=== PATIENT | female | born 1985 | race Caucasian/White ===

== ENCOUNTER → 2019-03-20 | Outpatient (CLI) | payer OTHER ==
--- NOTE | 2019-03-20 17:59 | RAD ---
Examination: ANKLE RIGHT 2V History: Right ankle pain and swelling Comparison/Correlation: None Findings: 3V right ankle x-ray exam was performed. Endotracheal mortise is unremarkable. Mild soft tissue swelling over the lateral malleolus is present. No fracture or bone destruction. Sclerotic density involving the distal tibial diametaphyseal region which represent a bone infarct or other benign process is present. Bony cortex is grossly unremarkable. Impression: Mild soft tissue swelling about the lateral malleolus. Distal tibial metaphyseal bone infarct or other benign appearing sclerotic process. Electronically signed by: Sd Lucio MD (03/20/2019 5:56 PM) [facility]
== END | disposition home or self-care (01) ==
LOC: DXRAD 11:08
PROVIDERS: ATTEND Physician Assistant
DX: M25.471 Effusion, right ankle (principal); M25.571 Pain in right ankle and joints of right foot
CPT/HCPCS: 73600

== ENCOUNTER 2019-07-07 22:57 | Observation (INO) | payer OTHER ==
[~2019-07-07] VITALS: Ht 162.6 cm; Wt 83.9 kg
--- NOTE | 2019-07-07 23:00 | PHYS DOC ---
Past History Past Medical History: Other Past Medical History History of elevated LFTs Smoking: Cigarettes General Adult HPI: HPI: ".. I feel like ... I got the flu... I didn't get my flu shot... and now I hurt all over... feverish... chills, now a headache... I feel like some one beat from top my head down... I just took my last Bactrim... .. I was on it 10 days... for the abscess in my Rt arm pit...Danilo Sawyer sent me in.. said I should have any pneumonia... It feels like the flu....".. I have had a little cough.. nothing comes up.. " Patient is a 33 year old female who presents with above hx and complaints fever, malaise, myalgia, arthralgia, cephalgia and nausea. Patient has just completed 10-day course of Bactrim DS twice a day for treatment of right axillary abscess. Patient states she has been trying stay at home during this COVID pandemic. Pt. 2 children ages 4 and 7 are well. No other family members have symptoms. Patient did not get flu vaccination this season. Patient does smoke. Patient denies any history immunosuppression. Has had elevated LFTs that Dr. Payton and he has been following up. Has a pending liver ultrasound. The patient denies any recent travel outside the [place] area. The pt. follows with Dr. Montgomery Review of Systems: Review of Systems: -Constitutional: Complains of fever or chills Eyes: Denies change in visual acuity HENT: Denies nasal congestion or sore throat Respiratory: History of nonproductive cough Cardiovascular: Denies chest pain or edema GI: Denies abdominal pain, , vomiting, bloody stools or diarrhea . Complains of nausea. Patient complains of recent series of irregular periods and elevated liver enzymes that is being worked up by Dr. Boland : Denies dysuria Musculoskeletal: Denies back pain or joint pain Integument: Denies rash. Complains of recent axillary abscess on the right Neurologic: Complains of headache,. Denies focal weakness or sensory changes Endocrine: Denies polyuria or polydipsia Lymphatic: Denies swollen glands Psychiatric: Denies depression or anxiety Heart Score: HEART Score for Chest Pain: HEART Score for Chest Pain Response (Comments) Value History Slighlty/Non-Suspicious 0 ECG Normal 0 Age < 45 0 Risk Factors 1 or 2 Risk Factors 1 Troponin >1-<3x Normal Limit 1 Total 2 Risk Factors: Risk Factors: DM, Current or recent (<one month) smoker, HTN, HLP, family h istory of CAD, obesity. Risk Scores: Score 0 - 3: 2.5% MACE over next 6 weeks - Discharge Home Score 4 - 6: 20.3% MACE over next 6 weeks - Admit for Clinical Observation Score 7 - 10: 72.7% MACE over next 6 weeks - Early Invasive Strategies Family History: Family History: Noncontributory to presentation Current Medications: Current Meds: See nursing for home meds Allergies: Allergies: No known drug allergies Physical Exam: PE: Constitutional: Moderate acute distress, non-toxic appearance. [] HENT: Normocephalic, atraumatic, bilateral external ears normal, oropharynx moist, mild injection of pharynx, no oral exudates, nose swollen turbinate and clear rhinorrhea.. Patient scalp is tenderness to palpation. Eyes: PERRLA, EOMI, conjunctiva normal, no discharge. [] Neck: Normal range of motion, adenopathy, mild tenderness, supple, no stridor. [] Cardiovascular:Heart rate regular rhythm, no murmur [] Lungs & Thorax: Bilateral breath sounds equal at apex with scattered wheezes on auscultation [] Abdomen: Bowel sounds normal, soft, no tenderness, no masses, no pulsatile masses. [] Skin: Warm, dry, no erythema, no rash. [] Back: No tenderness, no CVA tenderness. [] Extremities: No tenderness, no cyanosis, no clubbing, ROM intact, no edema. No appreciable cording in the legs. Right axillary abscess well-healed. Neurologic: Alert and oriented X 3, normal motor function, normal sensory function, no focal deficits noted. [] DTRs +2 patellar and brachial. Digital Photographer equal. No drift. Patient is ambulatory. Psychologic: Affect anxious, judgement normal, mood normal. [] EKG: EKG: My interpretation EKG shows a sinus rhythm at 75 bpm. No acute morphology [] Radiology/Procedures: Radiology/Procedures: [][address] [address] IMAGING REPORT Signed PATIENT: MARSHAL PURDY ACCOUNT: [id number] : 1985 LOCATION: ER AGE: 33 SEX: F EXAM STATUS: REG ER ORD. PHYSICIAN: ROSE OCHOA MD REASON: headache and neck pain PROCEDURE: CT HEAD AND CERVICAL SPINE WO CT head without contrast. CT cervical spine without contrast. PQRS statement: CT scans at this facility use dose reduction including either automated exposure control, iterative reconstructions, and /or weight based radiation dosing via mA and kV modification when appropriate to reduce radiation dose to as low as reasonably achievable. HISTORY: Headache. Neck pain. CT head findings: No intracranial hemorrhage, mass, hydrocephalus or infarction. No acute ischemic change. Orbits, mastoids and bones are unremarkable. IMPRESSION: Normal exam. CT cervical spine findings: Craniocervical junction intact. Cervical vertebral body height and alignment intact. No fracture of the cervical spine. Paraspinal tissues and lung apices are unremarkable. Upper cervical jugular chain and posterior cervical triangle adenopathy largest lymph node at the left jugular chain measures 1.5 cm with a round morphology on image 45. IMPRESSION: 1. No acute osseous injury of the cervical spine. 2. Cervical adenopathy. Electronically signed by: Zakia Morris MD (07/08/2019 5:47 AM) [id number] DICTATED AND SIGNED BY: ZAKIA MORRIS MD DATE: 07/08/19 0547 CC: ROSE OCHOA MD; LARISSA ARREAGA MD ~ IMAGING REPORT Signed PATIENT: MARSHAL PURDY ACCOUNT: [id number] : 1985 LOCATION: ER AGE: 33 SEX: F EXAM STATUS: REG ER ORD. PHYSICIAN: ROSE OCHOA MD REASON: cough, fever PROCEDURE: CHEST PA & LATERAL PA and lateral chest x-ray HISTORY: Cough and fever. FINDINGS: Heart size normal. Mediastinal silhouette is normal. No pneumothorax, pulmonary opacities or pleural effusions. Bones are unremarkable. IMPRESSION: No acute process. No acute process. Electronically signed by: Zakia Morris MD (07/08/2019 5:49 AM) [id number] DICTATED AND SIGNED BY: ZAKIA MORRIS MD DATE: 07/08/19 0549 CC: ROSE OCHOA MD; LARISSA ARREAGA MD ~ Course & Med Decision Making: Course & Med Decision Making Pertinent Labs and Imaging studies reviewed. (See chart for details) Discussed presentation testing and treatment plan with , will admit with cardiology consult. Impression: 1. Viral syndrome 2. Anemia Hgb 10.2 normocytic indices 54/16 3. Elevated troponin 0.170 4. Elevated d-dimer 3.75 5. Elevated LFTs-AST 45, ALT 93, alk phos 169 6. Cervical adenopathy [] Dragon Disclaimer: Dragon Disclaimer: This electronic medical record was generated, in whole or in part, using a voice recognition dictation system. Departure Departure: Disposition: 01 HOME/RESIDENCE PRIOR TO ADM Condition: STABLE Referrals: LARISSA ARREAGA MD (PCP) Dragon Disclaimer This chart was dictated in whole or in part using Voice Recognition software in a busy, high-work load, and often noisy Emergency Department environment. It may contain unintended and wholly unrecognized errors or omissions. Dragon Disclaimer This chart was dictated in whole or in part using Voice Recognition software in a busy, high-work load, and often noisy Emergency Department environment. It may contain unintended and wholly unrecognized errors or omissions. ROSE OCHOA MD Jul 07, 2019 23:00
--- NOTE | 2019-07-08 01:10 | EKG ---
[address] [address] Test Date: 2019-07-08 Test Time: 00:47:40 Pat Name: MARSHAL PURDY Department: Room: Gender: F Event Management Consultant: : 1985 Requested By: ROSE OCHOA Order Number: [id number] Reading MD: Clinton Wang Measurements Intervals [place] Rate: 75 P: 17 MT: 148 QRS: 11 QRSD: 78 T: 6 QT: 370 QTc: 416 Interpretive Statements SINUS RHYTHM NORMAL ECG RI6.02 No previous ECG available for comparison Electronically Signed On 07-09-2019 20:05:16 CDT by Clinton Wang
[2019-07-08] MEDS ORDERED: IV RINGERS SOLUTION,LACTATED 1,000 ML IV SCH (02:15)
[2019-07-08] MEDS ORDERED: KETOROLAC 30 MG/ML VIAL. IVP ONE (02:15)
[2019-07-08] MEDS ORDERED: ONDANSETRON PF 4 MG/2 ML VIAL. IVP ONE (02:15)
[2019-07-08 04:39] LABS: ALBUMIN 3.7 g/dL (3.4-5.0); CALCIUM 8.3 mg/dL (8.5-10.1); GFR 64.3; TOTAL BILIRUBIN 0.2 mg/dL (0.2-1.0); TOTAL PROTEIN 7.2 g/dL (6.4-8.2)
[2019-07-08 04:40] LABS: POTASSIUM 3.7 mmol/L (3.5-5.1)
[2019-07-08] MEDS ORDERED: ASPIRIN 325 MG TABLET PO ONE (05:30)
--- NOTE | 2019-07-08 05:50 | RAD ---
CT head without contrast. CT cervical spine without contrast. PQRS statement: CT scans at this facility use dose reduction including either automated exposure control, iterative reconstructions, and /or weight based radiation dosing via mA and kV modification when appropriate to reduce radiation dose to as low as reasonably achievable. HISTORY: Headache. Neck pain. CT head findings: No intracranial hemorrhage, mass, hydrocephalus or infarction. No acute ischemic change. Orbits, mastoids and bones are unremarkable. IMPRESSION: Normal exam. CT cervical spine findings: Craniocervical junction intact. Cervical vertebral body height and alignment intact. No fracture of the cervical spine. Paraspinal tissues and lung apices are unremarkable. Upper cervical jugular chain and posterior cervical triangle adenopathy largest lymph node at the left jugular chain measures 1.5 cm with a round morphology on image 45. IMPRESSION: 1. No acute osseous injury of the cervical spine. 2. Cervical adenopathy. Electronically signed by: Remington Morris MD (07/08/2019 5:47 AM) [id number]
--- NOTE | 2019-07-08 05:52 | RAD ---
PA and lateral chest x-ray HISTORY: Cough and fever. FINDINGS: Heart size normal. Mediastinal silhouette is normal. No pneumothorax, pulmonary opacities or pleural effusions. Bones are unremarkable. IMPRESSION: No acute process. No acute process. Electronically signed by: Remington Morris MD (07/08/2019 5:49 AM) [id number]
[2019-07-08 06:08] LABS: BARBITURATES NEG (NEG); BENZODIAZEPINES NEG (NEG); CANNABINOIDS NEG (NEG); COCAINE NEG (NEG); METHADONE NEG (NEG); OPIATES NEG (NEG); PHENCYCLIDINE NEG (NEG)
[2019-07-08 06:12] LABS: INFLUENZA A PATIENT NEGATIVE (NEGATIVE); INFLUENZA B PATIENT NEGATIVE (NEGATIVE)
[2019-07-08 06:23] LABS: AMPHETAMINE/METHAMPHETAMINE NEG (NEG)
[2019-07-08] MEDS ORDERED: ONDANSETRON PF 4 MG/2 ML VIAL. IVP PRN ×2 (06:45→15:30)
[2019-07-08] MEDS ORDERED: ANTI-COAG MONITOR BY PHARMACY. MC PRN (07:00)
[2019-07-08 07:15] LABS: CLARITY,URINE CLEAR; COLOR,URINE YELLOW
[2019-07-08 07:16] LABS: BACTERIA,URINE 0 /HPF (0-FEW); BILIRUBIN,URINE NEG (NEG); GLUCOSE,URINE NEG (NEG); NITRITE,URINE NEG (NEG); RBC,URINE 0 /HPF (0-2); SQUAMOUS EPITHELIAL CELL,UR FEW /LPF; UROBILINOGEN,URINE 0.2 mg/dL (0.2 mg/dL); WBC,URINE OCC /HPF (0-4)
[2019-07-08] MEDS ORDERED: IPRATRPIUM/ALBUTEROL 0.5/2.5MG 3 ML NEBU. NEB SCH (08:00)
[2019-07-08 08:59] LABS: DIRECT BILIRUBIN 0.1 mg/dL (0.0-0.2)
[2019-07-08] MEDS ORDERED: ENOXAPARIN ** NOTE DOSE ** SYRINGE SQ SCH (09:00)
[2019-07-08] MEDS ORDERED: ASPIRIN CHEWABLE 81 MG TABLET. PO SCH (09:00)
[2019-07-08 10:28] VITALS: BP 116/70
[2019-07-08 11:04] LABS: HEMATOCRIT 40.3 % (36.0-47.0); HEMOGLOBIN 13.6 g/dL (12.0-15.5); MEAN CORPUSCULAR VOLUME 93 fL (79-100); RED BLOOD COUNT 4.35 x10^6/uL (3.50-5.40)
[2019-07-08 11:05] LABS: MEAN CORPUSCULAR HEMOGLOBIN 31 pg (25-35); MEAN CORPUSCULAR HGB CONC 34 g/dL (31-37); PLATELET COUNT 154 x10^3/uL (140-400); RED CELL DISTRIBUTION WIDTH 13.4 % (11.5-14.5)
[2019-07-08 11:08] LABS: WHITE BLOOD COUNT 3.3 x10^3/uL (4.0-11.0)
--- NOTE | 2019-07-08 11:21 | PDOC2 ---
CONSULT Date of Admission DATE: 07/08/19 TIME: 11:21 Reason for Consult: Chest pain Referring Physician: Dr. Salter Chief Complaint Fever and chills Problem List Problems Medical Problems: (1) Elevated troponin Status: Acute (2) Viral syndrome Status: Acute History of Present Illness 33-year-old female presented complaining of fever, chills, stiff neck and headache. She also complained of mild left-sided chest pain not related to exertion prompting cardiology consultation. She denied any orthopnea/PND, palpitations or syncope. Past Medical History Abnormal LFTs MRSA Past Surgical History section Family History Positive for coronary artery disease and colon cancer Social History Patient smokes half to 1 pack cigarettes a day and denied any alcohol or drug use Current Medications Current Medications Lactated Ringer's 1,000 ml @ 1,000 mls/hr Q1H IV Last administered on 07/08/19at 02:15; Start 07/08/19 at 02:15; Stop 07/08/19 at 03:14; Status DC Ondansetron HCl (Zofran) 8 mg 1X ONCE IVP Last administered on 07/08/19at 02:15; Start 07/08/19 at 02:15; Stop 07/08/19 at 02:16; Status DC Ketorolac Tromethamine (Toradol 30mg Vial) 30 mg 1X ONCE IVP Last administered on 07/08/19at 02:15; Start 07/08/19 at 02:15; Stop 07/08/19 at 02:16; Status DC Aspirin (Aidne Aspirin) 325 mg 1X ONCE PO Last administered on 07/08/19at 05:30; Start 07/08/19 at 05:30; Stop 07/08/19 at 05:31; Status DC Ondansetron HCl (Zofran) 4 mg PRN Q4HRS PRN IVP NAUSEA/VOMITING; Start 07/08/19 at 06:45; Stop 07/09/19 at 06:44 Albuterol/ Ipratropium (Duoneb) 3 ml RTQID NEB ; Start 07/08/19 at 08:00; Stop 07/08/19 at 09:14; Status DC Enoxaparin Sodium (Lovenox 100mg Syringe) 90 mg Q12HR SQ ; Start 07/08/19 at 09:00 Aspirin (Aspirin Chewable) 81 mg DAILY PO ; Start 07/08/19 at 09:00 Info (Anti-Coagulation Monitoring By Pharmacy) 1 each PRN DAILY PRN MC SEE COMMENTS; Start 07/08/19 at 07:00 Allergies: Coded Allergies: No Known Drug Allergies (Unverified , 07/08/19) General: YES: Chills PSYCHOLOGICAL ROS: No: Hallucinations Eyes: No: Loss of vision HEENT: No: Epistaxis Respiratory: No: Cough, Hemoptysis, Shortness of breath Cardiovascular: yes: Chest Pain Gastrointestinal: No: Vomiting, Diarrhea Neurological: No: Seizures General: Alert, Oriented X3 HEENT: Atraumatic Lungs: Clear to auscultation Heart: Regular rate Abdomen: Soft, No tenderness Extremities: No edema Psych/Mental Status: Mood NL VITALS Vital Signs Date Time Temp Pulse Resp B/P (MAP) Pulse Ox O2 Delivery O2 Flow Rate FiO2 07/08/19 10:51 Room Air 07/08/19 10:28 97.5 82 116/70 (85) 98 07/07/19 23:25 20 Labs Laboratory Tests Test 07/07/19 01:15 07/07/19 01:25 07/07/19 03:35 07/07/19 03:47 Prothrombin Time 9.3 SEC (9.4-11.4) Prothromb Time International Ratio 0.9 (0.9-1.1) Activated Partial Thromboplast Time 27 SEC (23-33) D-Dimer (Jennifer) 3.75 mg/L (0.00-0.50) Sodium Level 136 mmol/L (136-145) Potassium Level 3.7 mmol/L (3.5-5.1) Chloride Level 103 mmol/L (98-107) Carbon Dioxide Level 25 mmol/L (21-32) Anion Gap 0 (6-14) Blood Urea Nitrogen 9 mg/dL (7-20) Creatinine 1.0 mg/dL (0.6-1.0) Estimated GFR (Cockcroft-Gault) 64.3 Glucose Level 85 mg/dL (70-99) Calcium Level 8.3 mg/dL (8.5-10.1) Magnesium Level 2.0 mg/dL (1.8-2.4) Total Bilirubin 0.2 mg/dL (0.2-1.0) Direct Bilirubin 0.1 mg/dL (0.0-0.2) Aspartate Amino Transf (AST/SGOT) 45 U/L (15-37) Alanine Aminotransferase (ALT/SGPT) 93 U/L (14-59) Alkaline Phosphatase 169 U/L (46-116) Creatine Kinase 89 U/L (26-192) Troponin I Quantitative < 0.170 ng/mL (0-0.055) OP-Fzx-H-Type Natriuretic Peptide 20 pg/mL (0-124) Total Protein 7.2 g/dL (6.4-8.2) Albumin 3.7 g/dL (3.4-5.0) Lipase 86 U/L (73-393) Influenza Type A (Rapid) Negative (NEGATIVE) Influenza Type B (Rapid) Negative (NEGATIVE) Group A Streptococcus Rapid Negative (NEGATIVE) Test 07/08/19 01:15 07/08/19 01:20 07/08/19 01:34 White Blood Count 3.3 x10^3/uL (4.0-11.0) Red Blood Count 4.35 x10^6/uL (3.50-5.40) Hemoglobin 13.6 g/dL (12.0-15.5) Hematocrit 40.3 % (36.0-47.0) Mean Corpuscular Volume 93 fL (79-100) Mean Corpuscular Hemoglobin 31 pg (25-35) Mean Corpuscular Hemoglobin Concent 34 g/dL (31-37) Red Cell Distribution Width 13.4 % (11.5-14.5) Platelet Count 154 x10^3/uL (140-400) Neutrophils (%) (Auto) % (31-73) Lymphocytes (%) (Auto) % (24-48) Monocytes (%) (Auto) % (0-9) Eosinophils (%) (Auto) % (0-3) Basophils (%) (Auto) % (0-3) Neutrophils # (Auto) x10^3uL (1.8-7.7) Lymphocytes # (Auto) x10^3/uL (1.0-4.8) Monocytes # (Auto) x10^3/uL (0.0-1.1) Eosinophils # (Auto) x10^3/uL (0.0-0.7) Basophils # (Auto) x10^3/uL (0.0-0.2) Thyroid Stimulating Hormone (TSH) 1.869 uIU/mL (0.358-3.740) Urine Collection Type Void Urine Color Yellow Urine Clarity Clear Urine pH 6.5 Urine Specific [place] 1.025 Urine Protein Neg (NEG-TRACE) Urine Glucose (UA) Neg mg/dL (NEG) Urine Ketones (Stick) Neg mg/dL (NEG) Urine Blood Neg (NEG) Urine Nitrite Neg (NEG) Urine Bilirubin Neg (NEG) Urine Urobilinogen Dipstick 0.2 mg/dL (0.2 mg/dL) Urine Leukocyte Esterase Neg (NEG) Urine RBC 0 /HPF (0-2) Urine WBC Occ /HPF (0-4) Urine Squamous Epithelial Cells Few /LPF Urine Bacteria 0 /HPF (0-FEW) Urine Mucus Mod /LPF Urine Opiates Screen Neg (NEG) Urine Methadone Screen Neg (NEG) Urine Barbiturates Neg (NEG) Urine Phencyclidine Screen Neg (NEG) Urine Amphetamine/Methamphetamine Neg (NEG) Urine Benzodiazepines Screen Neg (NEG) Urine Cocaine Screen Neg (NEG) Urine Cannabinoids Screen Neg (NEG) Urine Ethyl Alcohol Neg (NEG) Bedside Urine HCG, Qualitative hcg negative (Negative) Assessment/Plan 1. Fever and chills, most probably acute viral syndrome. Continue management per primary team. 2. Chest pain with atypical features and most probably musculoskeletal. Myocardial infarction has been ruled out. Consider 2D echocardiogram as an outpatient. Thank you for your consultation. LOGAN QUEVEDO MD Jul 08, 2019 11:21
[2019-07-08 11:22] LABS: % BANDS 7 % (0-9); % EOS 6 % (0-5); % LYMPHS 20 % (24-48); % MONOS 15 % (0-10); % MYELOS 2 % (0-0); % SEGS 50 % (35-66); PLT ESTIMATE ADEQUATE (ADEQUATE)
[2019-07-08] MEDS ORDERED: ESCITALOPRAM OX10 MG PO (12:53)
[2019-07-08] MEDS ORDERED: IV NORMAL SALINE 1,000ML 1,000 ML IV SCH (15:30)
[2019-07-08 16:09] VITALS: BP 102/68
[2019-07-08] MEDS ORDERED: CONTRAST GIVEN MC PRN (17:15)
[2019-07-08] MEDS ORDERED: IOHEXOL 350 MG/ML 100 ML VIAL. IV ONE (17:15)
--- NOTE | 2019-07-08 18:15 | RAD ---
Examination: CT angiography chest HISTORY: History of elevated d-dimer COMPARISON: None available TECHNIQUE: Axial CT and radiographic images of chest were performed with IV contrast. Coronal and sagittal 3-D MIP reformats are performed Exposure: One or more of the following individualized dose reduction techniques were utilized for this examination: 1. Automated exposure control 2. Adjustment of the mA and/or kV according to patient size 3. Use of iterative reconstruction technique FINDINGS: The visualized thyroid gland grossly appears unremarkable. Central airways are patent. No evidence for significant mediastinal lymphadenopathy is identified. The caliber of the aorta grossly appears unremarkable. There is no evidence of filling defect identified in the main pulmonary arterial trunk and right and left main pulmonary arteries and the visualized lobar, segmental branches of the pulmonary arteries. The lungs are clear. Enlarged bilateral axillary lymph nodes identified with the largest measuring 2.1 cm in the right. No evidence of lytic bony destructive lesion. IMPRESSION: 1. No evidence of pulmonary embolism. 2. The lungs are clear. 3. Enlarged bilateral axillary lymph nodes identified with largest measuring 2.1 cm on the right. Differential includes inflammatory or metastasis or secondary to lymphoproliferative conditions. Electronically signed by: Kyrie Vieyra MD (07/08/2019 6:12 PM) [id number]
--- NOTE | 2019-07-08 18:26 | HP ---
ADMIT DATE: 07/08/2019 HISTORY OF PRESENT ILLNESS: The patient is a 33-year-old female patient who came to the Emergency Room complaining of fever, chills, headache. She apparently was diagnosed with right axillary abscess on the 06/27/2019 and it was incised on the , she was started on Bactrim and she took last dose on 07/06/2019. She developed fever up to 108 Fahrenheit, headache and stiffness in her neck that started last . She denied, however, any chest pain, any shortness of breath, cough, phlegm or hemoptysis. She is a rjfj-[id number] mom during this COVID pandemic. The patient had 2 children, aged 4 and 7 and no other family members have symptoms. The patient did not get flu vaccination this season. She does smoke about half to one pack a day and has had elevated LFTs that Dr. Payton has been following. She had ultrasound done. Unfortunately, I am unable to access the result of that. She was extensively evaluated in the Emergency Room. Her lab work showed that she has leukopenia with a white cell count of 3300, hemoglobin 13.6, hematocrit 40, MCV 93, and platelets 254,000. Her chemistries showed her liver enzymes are elevated, although her total bilirubin is normal. Her D-dimer was high at 3.75, although her prothrombin time, INR and aPTT were normal. Urinalysis was essentially unremarkable. Her test was negative. Her toxic screen was negative. Her influenza A and B are negative and group A streptococcus rapid test negative. She has had a CT scan of the head and cervical spine, which showed no intracranial hemorrhage, mass, hydrocephalus or infarction, no acute ischemic changes. Orbits, mastoids and bones cells are unremarkable. CT cervical spine showed craniocervical junction intact. Cervical vertebral body heights and alignment are intact. No fracture of the cervical spine. Paraspinal tissues and lung apices are unremarkable. Upper cervical jugular chains and posterior triangle adenopathy, largest lymph nodes at the left jugular chain measures 1.5 cm with a round morphology. Her chest x-ray showed the heart size is normal, mediastinal silhouette is normal. No pneumothorax, pulmonary opacities or pleural effusion. Bones are unremarkable. The patient was admitted for viral syndrome. She has also anemia that is normochromic. She has abnormal liver enzymes and cervical lymphadenopathy. Given that, she has leukopenia and abnormal liver enzymes and elevated D-dimer. I am a little bit suspicious that she might have been exposed to coronavirus and therefore, I will arrange for her to have a CT angio of the chest. PAST MEDICAL HISTORY: Significant for abnormal liver enzymes that were diagnosed in May of this year. She has had also MRSA infection grown from her right axillary abscess. PAST SURGICAL HISTORY: Significant for 2 C-sections. ALLERGIES: No known drug allergies. MEDICATIONS: She is currently on Lexapro. FAMILY HISTORY: Her father is and her mother is because of colon cancer. SOCIAL HISTORY: She is , has a daughter and a son. She smokes half to one pack a day, does not drink alcohol or use recreational drugs. She is a gjyc-um-rpya mom. PHYSICAL EXAMINATION: GENERAL: When I examined her, she looked well and was clearly in no apparent respiratory distress. She was somewhat pale, but no jaundice, cyanosis or thyromegaly. No jugular venous distention. No limb edema. VITAL SIGNS: Her heart rate was 85, blood pressure was 120/72, temperature was 99.1, respiratory rate 20, and oxygen saturation was 98% on room air. HEAD, EYES, EARS, NOSE AND THROAT: Showed normocephalic, atraumatic. NECK: Supple. HEART: Showed normal first and second heart sounds. No gallop, rub or murmur. CHEST: Clear to auscultation. No crepitation or rhonchi. ABDOMEN: Distended, soft, nontender. NEUROLOGIC: She is awake, alert, responding appropriately. All cranial nerves intact. EXTREMITIES: She moves extremities without difficulty. There is no evidence of any neck stiffness and Kernig sign was negative. LABORATORY DATA: Her lab work showed a white cell count of 3300, hemoglobin 13.6, hematocrit 40, MCV 93, and platelet count of 154,000. Her prothrombin time was 9.3, INR of 0.9, aPTT was 27 and D-dimer was 3.75. Her chemistry showed a serum sodium 136, potassium 3.7, chloride 103, bicarbonate 25, anion gap of 0, BUN 9, creatinine 1, estimated GFR was 64 mL per minute. Her glucose was 85, calcium was 8.3, magnesium 2. Total bilirubin is normal. AST, ALT, alkaline phosphatase are all elevated. CK was 89. Her total protein was 7.2, albumin 3.7, lipase 86. TSH was normal at 1.869. Her urinalysis was negative. Her urine test was negative. Toxic screen was negative and influenza A and B were negative and group A streptococcus negative. I will arrange for her to have the CT angio of the chest and once we have the results, we will keep her now in isolation for possible COVID infection. I will also send blood for hepatitis serology and if all the CT scan was unrevealing, she probably can be discharged home. LUCIEN LOVE MD DR: ROSARIO/meredith JOB#: [id number] / [id number]
--- NOTE | 2019-07-08 20:58 | DS ---
DATE OF DISCHARGE: 07/08/2019 HOSPITAL COURSE: The patient is a 33-year-old female patient who presented with a complaint of headache, fever. She apparently is known to have abnormal liver enzymes, followed by her primary care physician who did the abdominal ultrasound of liver and gallbladder; however, when she came to us here, she complained of fever. She has leukocytosis and we were concerned about the possibility that she might have coronavirus infection. Her influenza A and B were negative. Group A streptococcus negative. She did have an elevated D-dimer 3.75 and therefore we did a CT scan of the chest with PE protocol showed that there is no evidence of pulmonary embolism. The lungs are clear. She has enlarged bilateral axillary lymph nodes identified with the largest measuring 2.1 cm on the right. She has differential includes inflammatory or metastatic or secondary to lymphoproliferative conditions. The CT scan of the neck also showed that the patient has upper cervical jugular chain, posterior cervical triangle and adenopathy, largest lymph nodes at the left jugular chain, which was up to ____ morphology. Given this generalized lymphadenopathy together with the fact that she has fever, which probably indicates type B symptoms obviously a lymphoproliferative disease is highly likely and therefore, a decision was made to discharge her home with an appointment for lymph node biopsy that will arrange the beginning of next week with Dr. Munoz. PHYSICAL EXAMINATION: GENERAL: When I examined her this afternoon, she looked well and was clearly in no apparent respiratory distress. No pallor, jaundice, cyanosis or thyromegaly. She has lymph nodes in both cervical and axillary area. No thyromegaly. No jugular venous distention. No lower limb edema. VITAL SIGNS: Her heart rate was 68, blood pressure was 102/68, temperature 96.3, respiratory rate was 98. HEAD, EYES, EARS, NOSE AND THROAT: Showed normocephalic, atraumatic. NECK: Supple. HEART: Showed normal first and second heart sounds. No gallop, rub or murmur. CHEST: Clear to auscultation. No crepitation or rhonchi. ABDOMEN: Distended, soft, nontender. No guarding or rigidity. No organomegaly. All hernial orifice intact. Bowel sounds normal. NEUROLOGIC: She is awake, alert, responding appropriately. All cranial nerves intact. EXTREMITIES: She moves extremities without difficulty. She ambulates without assistance or assistive devices. LABORATORY DATA: Showed a white cell count of 3300, hemoglobin 13.6, hematocrit 40, MCV 93, and platelet count of 154,000. Her serum sodium was 136, potassium 3.7, chloride 103, bicarbonate 25, anion gap of 0, BUN 9, creatinine 1, estimated GFR was 64 mL per minute. Her glucose was 85, calcium was 8.3, magnesium was 2. Total bilirubin normal at 0.2. Her AST, ALT, alkaline phosphatase were elevated. CK was 89. Her first set of cardiac enzyme was less than 0.100. Her TSH was normal at 1.869. Her prothrombin time was 9.3, INR 0.9, aPTT was 27 and D-dimer was 3.75. Urinalysis was essentially unremarkable. Her urine test was negative. Toxic screen was essentially negative. Serology for influenza A and B and group A streptococcus were negative. DISCHARGE MEDICATIONS: The patient will be discharged home to continue on her citalopram 10 mg once a day. FINAL DISCHARGE DIAGNOSES: Generalized lymphadenopathy involving both cervical and bilateral axillary lymph nodes. She has leukopenia. She has deranged liver enzymes. This obviously raised the possibility of either inflammatory, metastatic or lymph node enlargement or lymphoproliferative condition secondary to some viral infection. LUCIEN LOVE MD DR: ROSARIO/meredith JOB#: [id number] / [id number]
== END 2019-07-08 19:20 | disposition home or self-care (01) ==
LOC: ER 22:57 → 1 SOUTH 07-08 06:20 → INTOOBSV 07-08 06:20
PROVIDERS: ADMIT Internal Medicine; ATTEND Internal Medicine
DX: R59.0 Localized enlarged lymph nodes (principal); R07.89 Other chest pain; B34.9 Viral infection, unspecified; D72.819 Decreased white blood cell count, unspecified; F17.210 Nicotine dependence, cigarettes, uncomplicated; D64.9 Anemia, unspecified; Z86.14 Personal history of Methicillin resistant Staphylococcus aureus infection; R51 Headache; A49.02 Methicillin resistant Staphylococcus aureus infection, unspecified site; Z79.899 Other long term (current) drug therapy
CPT/HCPCS: 36415; 70450; 71046; 71275; 72125; 80048; 80076; 80307; 81001; 81025; 82550; 83690; 83735; 83880; 84443; 84484; 85007; 85025; 85379; 85610; 85730; 86705; 86709; 86803; 87070; 87340; 87804; 87880; 93005; 96372; 96374; 96375; 99285; G0378; G0379; J1650; J1885; J2405; J7120; Q9967; J7030